=== PATIENT | male | born 1990 | race African-American/Black ===

== ENCOUNTER 2020-01-26 07:07 | Emergency (ER) | payer OTHER, MEDICAID ==
[~2020-01-26] VITALS: Ht 175.3 cm; Wt 98.0 kg
[2020-01-26] MEDS ORDERED: SODIUM CHLORIDE 0.9% 1,000 ML IV ONE ×2 (07:52→10:15)
[2020-01-26 08:22] LABS: HEMATOCRIT. 46.3 % (42.0-52.0); HEMOGLOBIN. 15.5 g/dL (14.0-18.0); MEAN CORPUSCULAR HEMOGLOBIN 33.2 pg (28.0-32.0); MEAN PLATELET VOLUME 9.3 fl (7.4-10.4); PLATELET 200 x1000/uL (130-400); RED BLOOD CELL COUNT 4.68 mill/uL (4.7-6.1); RED CELL DISTRIBUTION WIDTH 14.7 % (11.6-14.6)
[2020-01-26 08:40] LABS: PLATELET ESTIMATE NORMAL
[2020-01-26 10:56] LABS: CHLORIDE 109 mEq/L (98-107)
[2020-01-26 11:34] VITALS: BP 132/81
[2020-01-26 12:44] LABS: CLARITY URINE CLOUDY (CLEAR); COLOR URINE YELLOW (YELLOW); KETONES URINE TRACE (NEGATIVE); LEUKOCYTE ESTERASE URINE NEGATIVE (NEGATIVE); NITRITE URINE NEGATIVE (NEGATIVE); OCCULT BLOOD URINE 2+ (NEGATIVE); PROTEIN URINE 2+ (NEGATIVE); SPECIFIC GRAVITY URINE 1.027 (1.005-1.030)
[2020-01-26 13:18] LABS: *AMPHETAMINES SCREEN URINE PRESUMTIVE POSITIVE (NEGATIVE); *BARBITURATES SCREEN URINE NEGATIVE (NEGATIVE); *BENZODIAZEPINES SCREEN URINE PRESUMTIVE POSITIVE (NEGATIVE); *COCAINE SCREEN URINE PRESUMTIVE POSITIVE (NEGATIVE); METHADONE URINE SCREEN NEGATIVE (NEGATIVE)
[2020-01-26 13:19] LABS: OPIATES URINE SCREEN NEGATIVE (NEGATIVE)
[2020-01-26 13:20] LABS: PHENCYCLIDINE URINE SCREEN NEGATIVE (NEGATIVE)
[2020-01-26 13:22] LABS: CANNABINOID URINE SCREEN NEGATIVE (NEGATIVE)
== END 2020-01-26 13:12 | disposition home or self-care (01) ==
LOC: ER 07:07
DX: F14.10 Cocaine abuse, uncomplicated (principal)
CPT/HCPCS: 36415; 80048; 80053; 80305; 80320; 81003; 82962; 85025; 93005; 99284; J7030; 99283; G0480

== ENCOUNTER 2021-08-27 00:40 | Emergency (ER) | payer MEDICAID, OTHER ==
[~2021-08-27] VITALS: Ht 167.6 cm; Wt 78.0 kg
[2021-08-27] MEDS ORDERED: ONDANSETRON HCL 4MG/2ML INJ IV STA (00:42)
[2021-08-27] MEDS ORDERED: SODIUM CHLORIDE 0.9% 1,000 ML IV ONE (00:45)
[2021-08-27] MEDS ORDERED: PANTOPRAZOLE SODIUM 40 MG/VIAL IV ONE (00:45)
[2021-08-27 01:16] LABS: BASOPHILS % 0.5 % (0.0-2.0); EOSINOPHILS % 0.1 % (0.0-5.0); HEMATOCRIT. 42.3 % (42.0-52.0); HEMOGLOBIN. 14.1 g/dL (14.0-18.0); LYMPHOCYTES % 11.3 % (20.0-50.0); MEAN CORPUSCULAR HEMOGLOBIN 32.4 pg (28.0-32.0); MEAN CORPUSCULAR VOLUME 97.5 fL (80.0-94.0); MEAN PLATELET VOLUME 8.5 fl (7.4-10.4); MONOCYTES % 6.9 % (2.0-8.0); NEUTROPHILS % 81.2 % (40.0-76.0); PLATELET 333 x1000/uL (130-400); RED BLOOD CELL COUNT 4.33 mill/uL (4.7-6.1); RED CELL DISTRIBUTION WIDTH 13.9 % (11.6-14.6)
[2021-08-27 01:27] LABS: CHLORIDE 104 mEq/L (98-107)
[2021-08-27 01:31] LABS: ETHANOL BLOOD 209 mg/dL
[2021-08-27] MEDS ORDERED: ONDA4TAB5 MT (02:42)
[2021-08-27 02:49] LABS: CLARITY URINE CLEAR (CLEAR); COLOR URINE DARK YELLOW (YELLOW); KETONES URINE TRACE (NEGATIVE); LEUKOCYTE ESTERASE URINE NEGATIVE (NEGATIVE); NITRITE URINE NEGATIVE (NEGATIVE); OCCULT BLOOD URINE 2+ (NEGATIVE); PROTEIN URINE 3+ (NEGATIVE); SPECIFIC GRAVITY URINE 1.031 (1.005-1.030)
[2021-08-27 02:55] VITALS: BP 167/98
[2021-08-27 03:19] LABS: *AMPHETAMINES SCREEN URINE NEGATIVE (NEGATIVE); *BARBITURATES SCREEN URINE NEGATIVE (NEGATIVE); *BENZODIAZEPINES SCREEN URINE NEGATIVE (NEGATIVE); *COCAINE SCREEN URINE PRESUMTIVE POSITIVE (NEGATIVE); METHADONE URINE SCREEN NEGATIVE (NEGATIVE)
[2021-08-27 03:20] LABS: CANNABINOID URINE SCREEN NEGATIVE (NEGATIVE); OPIATES URINE SCREEN NEGATIVE (NEGATIVE); PHENCYCLIDINE URINE SCREEN PRESUMTIVE POSITIVE (NEGATIVE)
== END 2021-08-27 02:55 | disposition home or self-care (01) ==
LOC: ER 00:40
DX: Z13.9 Encounter for screening, unspecified (principal); R11.0 Nausea; F17.200 Nicotine dependence, unspecified, uncomplicated; I10 Essential (primary) hypertension; J45.909 Unspecified asthma, uncomplicated; F14.10 Cocaine abuse, uncomplicated; Z91.14 Patient's other noncompliance with medication regimen
CPT/HCPCS: 36415; 80053; 80305; 80307; 80320; 80329; 81003; 85025; 96360; 99283; C9113; J2405; J7030; G0480

== ENCOUNTER 2023-09-07 18:57 | Emergency (ER) | payer MEDICAID, OTHER ==
[~2023-09-07] VITALS: Ht 177.8 cm; Wt 82.0 kg
[~2023-09-07 18:57] MED LIST: ONDA4TAB5 MT
[2023-09-07 19:01] VITALS: O2SAT 97
[2023-09-07] MEDS: LEVETIRACETAM 500MG PREMIX 100 ML IV ONE ×2 (20:37)
[2023-09-07] MEDS: LORAZEPAM 2MG/ML INJ IV ONE (20:37)
[2023-09-07] MEDS ORDERED: KEPP500 MT (21:33)
[2023-09-07 21:50] LABS: BASOPHILS % 0.7 % (0.0-2.0); EOSINOPHILS % 0.4 % (0.0-5.0); HEMATOCRIT. 33.6 % (42.0-52.0); HEMOGLOBIN. 10.9 g/dL (14.0-18.0); LYMPHOCYTES % 11.3 % (20.0-50.0); MEAN CORPUSCULAR HEMOGLOBIN 30.7 pg (28.0-32.0); MEAN CORPUSCULAR HGB CONC 32.5 g/dL (31.0-37.0); MEAN CORPUSCULAR VOLUME 94.4 fL (80.0-94.0); MEAN PLATELET VOLUME 8.9 fl (7.4-10.4); MONOCYTES % 7.3 % (2.0-8.0); NEUTROPHILS % 80.3 % (40.0-76.0); PLATELET 149 x1000/uL (130-400); RED BLOOD CELL COUNT 3.56 mill/uL (4.7-6.1); RED CELL DISTRIBUTION WIDTH 15.2 % (11.6-14.6); WHITE BLOOD COUNT 6.5 x1000/uL (4.5-11.0)
[2023-09-07 22:00] VITALS: BP 163/71; PULSE 71; RESP 20; TEMP 97.3
[2023-09-07 22:08] LABS: ALANINE AMINOTRANSFERASE 61 IU/L (10-49); ALBUMIN 4.4 g/dL (3.2-4.8); ASPARTATE AMINOTRANSFERASE 121 IU/L (<34); BILIRUBIN TOTAL 0.6 mg/dL (0.1-1.0); CALCIUM 8.9 mg/dL (8.7-10.4); CARBON DIOXIDE 24 mEq/L (21-32); CHLORIDE 101 mEq/L (98-107); CREATININE 1.2 mg/dL (0.6-1.3); GLUCOSE 115 mg/dL (70-105); POTASSIUM 3.6 mEq/L (3.5-5.1); PROTEIN TOTAL 7.8 g/dL (6.0-8.3); SODIUM 133 mEq/L (136-145); TROPONIN I HIGH SENSITIVITY 6 ng/L (3.0-53); UREA NITROGEN BLOOD 14 mg/dL (9-23)
== END 2023-09-08 02:35 | disposition home or self-care (01) ==
LOC: ER 18:57
DX: R56.9 Unspecified convulsions (principal); F31.9 Bipolar disorder, unspecified; I10 Essential (primary) hypertension; F20.9 Schizophrenia, unspecified; F14.10 Cocaine abuse, uncomplicated
CPT/HCPCS: 80053; 83880; 85025; 84484; 36415; 71045; 70450; 93005; 96365; 96375; 99285; J1953; J2060; Z7610 ×6

== ENCOUNTER 2024-03-19 20:32 | Emergency (ER) | payer MEDICAID ==
[~2024-03-19] VITALS: Ht 177.8 cm; Wt 80.0 kg
[~2024-03-19 20:32] MED LIST changes: +KEPP500 MT
[2024-03-19 20:34] VITALS: O2SAT 99
[2024-03-20] MEDS ORDERED: NALO4SPR BOTHNSTRLS (01:00)
[2024-03-20] MEDS: ONDANSETRON 4MG ODT PO ONE (01:59)
[2024-03-20 03:07] VITALS: BP 151/69; PULSE 91; RESP 18; TEMP 36.50292; O2SAT 96
== END 2024-03-20 03:09 | disposition home or self-care (01) ==
LOC: ER 20:32
DX: T40.2X1A Poisoning by other opioids, accidental (unintentional), initial encounter (principal); F19.10 Other psychoactive substance abuse, uncomplicated; F14.10 Cocaine abuse, uncomplicated; F31.9 Bipolar disorder, unspecified; I10 Essential (primary) hypertension; Z86.59 Personal history of other mental and behavioral disorders; Z98.890 Other specified postprocedural states; Y92.9 Unspecified place or not applicable
CPT/HCPCS: 99283; 71045; Q0162

== ENCOUNTER 2024-03-20 03:33 | Emergency (ER) | payer MEDICAID, OTHER ==
[~2024-03-20] VITALS: Ht 175.3 cm; Wt 88.0 kg
[~2024-03-20 03:33] MED LIST changes: +NALO4SPR BOTHNSTRLS
[2024-03-20 03:43] VITALS: O2SAT 99
[2024-03-20 06:20] VITALS: BP 144/74; PULSE 85; RESP 16; TEMP 36.55848; O2SAT 98
== END 2024-03-20 06:23 | disposition home or self-care (01) ==
LOC: ER 03:33
DX: R09.A9 Foreign body sensation, other site (principal); I10 Essential (primary) hypertension; F31.9 Bipolar disorder, unspecified; F14.10 Cocaine abuse, uncomplicated; Z86.59 Personal history of other mental and behavioral disorders
CPT/HCPCS: 73660; 99283

== ENCOUNTER 2024-03-25 05:03 | Emergency (ER) | payer OTHER ==
[~2024-03-25] VITALS: Ht 175.3 cm; Wt 89.0 kg
[2024-03-25 05:23] VITALS: O2SAT 99
[2024-03-25] MEDS ORDERED: KETAMINE HCL 50 MG/ML 10ML IV ONE (06:00)
[2024-03-25] MEDS ORDERED: PROPOFOL 200MG/20ML VIAL IV ONE (06:00)
[2024-03-25 06:28] LABS: CARBON DIOXIDE 27 mEq/L (21-32); CHLORIDE 102 mEq/L (98-107); POTASSIUM 3.9 mEq/L (3.5-5.1); SODIUM 136 mEq/L (136-145)
[2024-03-25 06:34] LABS: CREATININE 1.2 mg/dL (0.6-1.3); GLUCOSE 97 mg/dL (70-105); UREA NITROGEN BLOOD 12 mg/dL (9-23)
[2024-03-25 06:35] LABS: TROPONIN I HIGH SENSITIVITY 16 ng/L (3.0-53)
[2024-03-25 06:49] LABS: BASOPHILS % 0.9 % (0.0-2.0); HEMATOCRIT. 39.4 % (42.0-52.0); MEAN CORPUSCULAR HGB CONC 33.1 g/dL (31.0-37.0); MEAN CORPUSCULAR VOLUME 96.6 fL (80.0-94.0); MEAN PLATELET VOLUME 8.7 fl (7.4-10.4); MONOCYTES % 7.6 % (2.0-8.0); NEUTROPHILS % 79.5 % (40.0-76.0); PLATELET 295 x1000/uL (130-400); RED BLOOD CELL COUNT 4.08 mill/uL (4.7-6.1); WHITE BLOOD COUNT 10.7 x1000/uL (4.5-11.0)
[2024-03-25 08:05] VITALS: BP 196/118; PULSE 111; RESP 18; TEMP 36.78072; O2SAT 99
[2024-03-25] MEDS: HYDRALAZINE 20MG/ML VIAL IV ONE (08:06)
== END 2024-03-25 20:03 | disposition left against medical advice (07) ==
LOC: ER 05:03
DX: I16.0 Hypertensive urgency (principal); F20.9 Schizophrenia, unspecified; F31.9 Bipolar disorder, unspecified; F14.90 Cocaine use, unspecified, uncomplicated; F10.20 Alcohol dependence, uncomplicated; Z79.899 Other long term (current) drug therapy; Y90.9 Presence of alcohol in blood, level not specified
CPT/HCPCS: 80048; 85025; 84484; 36415; 71045; 73620; 93005; 96374; 99285; J0360; Z7610

== ENCOUNTER 2024-04-07 20:24 | Emergency (ER) | payer OTHER ==
[~2024-04-07] VITALS: Ht 175.3 cm; Wt 84.0 kg
[2024-04-07 20:47] VITALS: TEMP 98.5; O2SAT 96
[2024-04-07 23:04] VITALS: BP 173/90; PULSE 102; RESP 16
[2024-04-07] MEDS: IBUPROFEN 600MG TABLET PO ONE (23:04)
== END 2024-04-07 23:04 | disposition home or self-care (01) ==
LOC: ER 20:24
DX: M79.674 Pain in right toe(s) (principal); F20.9 Schizophrenia, unspecified; I10 Essential (primary) hypertension; F31.9 Bipolar disorder, unspecified; F14.10 Cocaine abuse, uncomplicated
CPT/HCPCS: 99282

== ENCOUNTER 2024-05-11 22:41 | Emergency (ER) | payer OTHER ==
[~2024-05-11] VITALS: Ht 170.2 cm; Wt 90.0 kg
[2024-05-11 22:45] VITALS: BP 189/70; PULSE 100; RESP 18; TEMP 98.6; O2SAT 99
== END 2024-05-12 01:13 | disposition home or self-care (01) ==
LOC: ER 22:41
DX: M79.674 Pain in right toe(s) (principal); F14.10 Cocaine abuse, uncomplicated; J45.909 Unspecified asthma, uncomplicated
CPT/HCPCS: 99283

== ENCOUNTER 2024-05-12 01:21 | Emergency (ER) | payer SELFPAY ==
[~2024-05-12] VITALS: Ht 175.3 cm; Wt 89.1 kg
[2024-05-12 01:57] VITALS: TEMP 98.3; O2SAT 99
[2024-05-12 03:41] VITALS: BP 143/79; PULSE 81; RESP 18; O2SAT 99
== END 2024-05-12 04:15 | disposition home or self-care (01) ==
LOC: ER 01:31
DX: G89.29 Other chronic pain (principal); R53.1 Weakness; I10 Essential (primary) hypertension; J45.909 Unspecified asthma, uncomplicated; M79.673 Pain in unspecified foot; F14.10 Cocaine abuse, uncomplicated
CPT/HCPCS: 99281

== ENCOUNTER 2024-06-01 00:32 | Emergency (ER) | payer SELFPAY ==
[~2024-06-01] VITALS: Ht 180.3 cm; Wt 82.0 kg
[2024-06-01 00:51] VITALS: BP 151/100; PULSE 104; RESP 16; TEMP 98.1; O2SAT 100
== END 2024-06-01 05:00 | disposition left against medical advice (07) ==
LOC: ER 00:54
DX: M79.674 Pain in right toe(s) (principal); Z53.21 Procedure and treatment not carried out due to patient leaving prior to being seen by health care provider

== ENCOUNTER 2024-06-05 03:21 | Emergency (ER) | payer SELFPAY ==
[~2024-06-05] VITALS: Ht 180.3 cm; Wt 90.0 kg
[2024-06-05 03:27] VITALS: O2SAT 99
[2024-06-05 06:03] LABS: EOSINOPHILS % 0.3 % (0.0-5.0); HEMOGLOBIN. 11.3 g/dL (14.0-18.0); LYMPHOCYTES % 22.8 % (20.0-50.0); MEAN CORPUSCULAR HEMOGLOBIN 31.8 pg (28.0-32.0); MEAN CORPUSCULAR HGB CONC 33.2 g/dL (31.0-37.0); MEAN CORPUSCULAR VOLUME 95.7 fL (80.0-94.0); MONOCYTES % 9.7 % (2.0-8.0); NEUTROPHILS % 66.2 % (40.0-76.0); PLATELET 325 x1000/uL (130-400); RED BLOOD CELL COUNT 3.55 mill/uL (4.7-6.1); RED CELL DISTRIBUTION WIDTH 15.3 % (11.6-14.6)
[2024-06-05 06:13] LABS: CHLORIDE 109 mEq/L (98-107); POTASSIUM 4.3 mEq/L (3.5-5.1); SODIUM 141 mEq/L (136-145)
[2024-06-05 06:14] LABS: CALCIUM 9.2 mg/dL (8.7-10.4); CARBON DIOXIDE 24 mEq/L (21-32)
[2024-06-05 06:19] LABS: CREATININE 1.2 mg/dL (0.6-1.3); GLUCOSE 97 mg/dL (70-105); UREA NITROGEN BLOOD 10 mg/dL (9-23)
[2024-06-05] MEDS ORDERED: ACETAMINOPHEN 325MG TABLET PO ONE (06:45)
[2024-06-05] MEDS ORDERED: ONDANSETRON HCL 4MG TABLET PO ONE (06:45)
[2024-06-05] MEDS ORDERED: TOPUD PO (07:33)
[2024-06-05 07:45] VITALS: BP 122/67; PULSE 98; RESP 20; TEMP 36.50292; O2SAT 99
== END 2024-06-05 11:29 | disposition home or self-care (01) ==
LOC: ER 03:28
DX: M79.674 Pain in right toe(s) (principal); J45.909 Unspecified asthma, uncomplicated; I10 Essential (primary) hypertension; Z79.899 Other long term (current) drug therapy
CPT/HCPCS: 36415; 71045; 73620; 80048; 85025; 99284